=== PATIENT | female | born 1960 | race Caucasian/White ===

== ENCOUNTER → 2017-05-01 | Day surgery (SDC) | payer OTHER ==
[~2017-05-01] VITALS: Ht 172.7 cm; Wt 105.7 kg
[~2017-05-01] MED LIST: LEVOTHYROXINE100 MC1 PO; PRAVASTATIN SOD10 MG PO; ZESTRIL10 MG PO
--- NOTE | ~2017-05-01 | PROC NOTE ---
[place], [place] PROCEDURE NOTE NAME: TORRIE GARAY UNIT #: [id number] ROOM: DOCTOR: BLESSING ROTIZ MD,ENEIDA BIRTHDATE: [birth year] DOS: 05/01/2017 BRONCHOSCOPY NOTE PREOPERATIVE DIAGNOSIS: Persistent chronic nonresolving cough. POSTOPERATIVE DIAGNOSES: Moderate impaction of the mucus plug, cleared endobronchial tree bilaterally. DESCRIPTION OF PROCEDURE: Informed consent obtained from the patient. The patient brought to the OR and placed in supine position. Conscious sedation administered by the Anesthesia Department. After achieving proper sedation, airway introduced into the mouth. Bronchoscope advanced to the airway into laryngeal area. Epiglottis and vocal cords were seen. Vocal cord noted yellowish in color and moving symmetrically with movements. The bronchoscope advanced to the vocal cord and tracheal lumen. The tracheal lumen noted with moderate amount of thick mucus secretion, which was suctioned out. Jumana was noted sharp. Right upper, right middle, right lower, left upper, lingular lower bronchi were all examined. Moderate amount of mucus plug present in the basilar subsegments of the lungs. All secretions suctioned out, clear with half normal saline wash and sent for cultures. Procedure was well tolerated by the patient without any difficulty. Postoperative findings were discussed with the patient's daughter in the recovery room after the completion of procedure. She will be assessed in the office for further followup visit to discuss culture results of the bronchial washings. ENEIDA FUNK MD CM:PROCNOTE:PROCEDURE NOTE [id number] ENEIDA ORTIZ MD
[2017-05-01 08:13] VITALS: BP 126/80
[2017-05-01 09:10] VITALS: BP 127/63
[2017-05-01 09:25] VITALS: BP 134/56
[2017-05-01 09:40] VITALS: BP 119/61
[2017-05-02 17:10] LABS: ACID FAST SMEAR Negative (.); ACID FAST SPEC PROCESSING Concentration (.)
== END ==
LOC: SDC 04-30 12:30
PROVIDERS: Internal Medicine Critical Care Medicine
DX: J98.09 Other diseases of bronchus, not elsewhere classified (principal); I10 Essential (primary) hypertension; E07.9 Disorder of thyroid, unspecified; Z98.890 Other specified postprocedural states; Z79.899 Other long term (current) drug therapy

== ENCOUNTER → 2023-04-22 | Day surgery (SDC) | payer OTHER ==
[~2023-04-22] VITALS: Ht 172.7 cm; Wt 90.7 kg
[~2023-04-22] MED LIST changes: +CYMBALTA60 MG PO; +LEVOXYL112 MCG PO; +VITAMIN D31250 MC1 PO
[2023-04-22 08:42] VITALS: BP 110/56
[2023-04-22 09:50] VITALS: BP 137/93
[2023-04-22 10:06] VITALS: BP 119/74
[2023-04-22 10:20] VITALS: BP 131/68
[2023-04-23 15:07] LABS: ACID FAST SPEC PROCESSING Concentration (.)
== END | disposition home or self-care (01) ==
LOC: SDC 04-18 08:45
PROVIDERS: ATTEND Internal Medicine Critical Care Medicine
DX: R91.8 Other nonspecific abnormal finding of lung field (principal); J44.9 Chronic obstructive pulmonary disease, unspecified; J30.89 Other allergic rhinitis; Z87.891 Personal history of nicotine dependence; J40 Bronchitis, not specified as acute or chronic; I10 Essential (primary) hypertension